=== PATIENT | female | born 1955 ===

== ENCOUNTER 2016-12-19 11:23 | Outpatient (CLI) | payer OTHER | END 2016-12-19 12:52 | LOC: D.MAMMO 11:23 | DX: Z12.31 Encounter for screening mammogram for malignant neoplasm of breast (principal) ==

== ENCOUNTER → 2017-01-30 16:44 | Outpatient (CLI) | payer OTHER | END | disposition home or self-care (01) | LOC: D.MAMMO 10:30 | DX: R92.8 Other abnormal and inconclusive findings on diagnostic imaging of breast (principal) ==